=== PATIENT | female | born 1940 | race Caucasian/White ===

== ENCOUNTER → 2016-11-13 | Outpatient (CLI) | payer MEDICARE, BC ==
[2016-11-13 13:49] LABS: Blood Urea Nitrogen 6 mg/dL (7-17); Non-African American GFR(MDRD) >60 (>60 ml/min/1.73 sqM)
== END | disposition home or self-care (01) ==
LOC: LABWHC1 13:20
PROVIDERS: ATTEND Physical Medicine & Rehabilitation
DX: Z01.812 Encounter for preprocedural laboratory examination (principal); N28.9 Disorder of kidney and ureter, unspecified; M47.817 Spondylosis without myelopathy or radiculopathy, lumbosacral region; M51.36 Other intervertebral disc degeneration, lumbar region; M25.551 Pain in right hip; Z96.641 Presence of right artificial hip joint; Z85.3 Personal history of malignant neoplasm of breast
CPT/HCPCS: 36415; 82565; 84520

== ENCOUNTER → 2018-10-19 | Outpatient (CLI) | payer MEDICARE, BC ==
[2018-10-19 11:10] LABS: African American GFR (CKD) >90 (>60 ml/min/1.73 sqM); Blood Urea Nitrogen 10 mg/dL (7-17)
--- NOTE | 2018-10-19 15:30 | CT ---
EXAMINATION TYPE: CT ChestAbdPelvis w con DATE OF EXAM: 10/19/2018 COMPARISON: None HISTORY: 78-year-old female with Breast cancer, weight loss TECHNIQUE: Contiguous axial scanning of the chest, abdomen, and pelvis performed with IV Contrast, pa tient injected with 100 mL of Isovue 300. Delayed images through the kidneys were obtained. Coronal/s agittal reconstructions performed. CT DLP: 880.3 mGycm Automated exposure control for dose reduction was used. FINDINGS: CHEST: Heart borderline enlarged without pericardial effusion. Scattered coronary vessel calcifications are present. Mild aortic valvular calcifications. Ectatic ascending aorta at 3.8 cm. Moderate atherosclerotic arch calcifications with conventional arc h vessel branching anatomy. 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 Tortuous mid an d lower descending thoracic aorta. No thoracic lymphadenopathy by CT size criteria. Bilateral retropectoral implants are demonstrated. Mild to moderate centrilobular emphysema in the upper lungs. No consolidation or pleural effusion. There is a large hiatal hernia containing the entire stomach with organoaxial positioning. No surroun ding fluid, abnormal wall thickening, or pneumatosis seen. ABDOMEN: Above-mentioned large hiatal hernia. Couple calcifications within the mid aspect of the liver likely representing calcified granulomas. No other focal liver lesion seen. Portal venous system is patent. No biliary ductal dilatation. Large diverticulum arising from the second portion of the duodenum measuring up to 5.6 cm and contain ing some debris and contrast and projecting into the pancreatic head region. Thickening of the posterior wall of the gallbladder 9 mm. No abnormal gallbladder distention or surro unding inflammatory fat stranding. Adrenal glands, kidneys, spleen, and pancreas show no gross abnormal mobility. No dilated small bowel, free fluid, or free air. No mesenteric or retroperitoneal lymphadenopathy. Moderate atherosclerotic calcifications abdominal aorta and iliac arteries without aneurysm. Normal appendix. Oral contrast progressed to the rectum. Staple line from prior resection and re-anastomosis at the re ctosigmoid junction. There is sigmoid diverticulosis without pericolonic inflammatory change. PELVIS: Bladder is urine distended. Uterus anteverted. Both ovaries are visualized. No abnormal fluid collect ion in the pelvis. Artifact from the patient's right hip arthroplasty limits the exam. Stable to excl ude abnormal soft tissue thickening along the right posterior pelvis, refer to axial images 106 and 1 07 and coronal image 72. Otherwise, no evident pelvic lymphadenopathy. BONES: Right hip arthroplasty. Advanced degenerative disc disease lower thoracic spine and throughout the samara mbar spine. Hypertrophic facet arthropathy lumbar spine. IMPRESSION: 1. BILATERAL RETROPECTORAL BREAST IMPLANTS. 2. COPD WITH MILD TO MODERATE EMPHYSEMA. 3. LARGE HIATAL HERNIA CONTAINING ESSENTIALLY THE ENTIRE STOMACH WITH ORGANOAXIAL POSITIONING. NO INF LAMMATORY CHANGES TO SUGGEST VOLVULUS. 4. ORAL CONTRAST HAS PROGRESSED TO THE RECTUM. PRIOR DISTAL COLONIC RESECTION WITH RECTOSIGMOID ANAST OMOSIS. 5. EXTENSIVE ARTIFACT FROM PATIENT'S RIGHT HIP TOTAL ARTHROPLASTY. EITHER ABNORMAL SOFT TISSUE IN THE POSTERIOR RIGHT HEMIPELVIS VERSUS STREAK ARTIFACT. THE LATTER IS SOMEWHAT FAVORED WHEN CORRELATING W ITH THE CORONAL SERIES. CORRELATE FOR ANY CLINICAL SYMPTOMS IN THE LOWER RIGHT PELVIS TO DETERMINE TH E NEED FOR FURTHER EVALUATION SUCH WITH CT OF THE PELVIS WITH MARS (METAL ARTIFACT REDUCTION ) PRO TOCOL. 6. THICKENING OF THE POSTERIOR WALL OF THE GALLBLADDER UP TO 9 MM SUSPECTED TO BE ON THE BASIS OF LAY ERING GRAVEL/SLUDGE. THIS CAN BE CONFIRMED WITH GALLBLADDER ULTRASOUND. 7. SIGMOID DIVERTICULOSIS.
== END | disposition home or self-care (01) ==
LOC: RADCTMAIN 10:02
PROVIDERS: ATTEND Internal Medicine Hematology & Oncology
DX: Z03.89 Encounter for observation for other suspected diseases and conditions ruled out (principal); C50.919 Malignant neoplasm of unspecified site of unspecified female breast; J43.9 Emphysema, unspecified; K44.9 Diaphragmatic hernia without obstruction or gangrene; K57.30 Diverticulosis of large intestine without perforation or abscess without bleeding; R93.5 Abnormal findings on diagnostic imaging of other abdominal regions, including retroperitoneum; Z98.82 Breast implant status; Z98.890 Other specified postprocedural states
CPT/HCPCS: 82565; 84520; 71260; 74177; 36415; Q9967

== ENCOUNTER → 2018-10-25 | Outpatient (CLI) | payer MEDICARE, BC ==
--- NOTE | 2018-10-26 04:30 | NM ---
EXAMINATION TYPE: NM bone scan whole body DATE OF EXAM: 10/25/2018 COMPARISON: Correlation CT 10/19/2018 HISTORY: 78-year-old female history of breast cancer 12 years ago. Technique: Delayed whole-body scanning was performed following the injection of 24.9 mCi Tc 99m MDP. Images acquired 3.5 hours post injection. FINDINGS: Periodontal disease. Degenerative tracer activity at the shoulders, sternoclavicular joints, sternoma nubrial joint, and lateral compartment of the left knee. Extensive localized tracer activity within t he mid to lower thoracic spine corresponds to areas of degenerative disc disease. Additional degenera tive activity especially along the posterior elements of the cervical spine and lower lumbar spine. N o suspicious distribution of tracer activity to suggest osseous metastatic disease. IMPRESSION: Degenerative tracer activity as above, fairly extensive in the mid to lower thoracic spine, posterior elements of the cervical spine, and lower lumbar spine corresponding to findings on CT. No convincin g scintigraphic evidence for osseous metastatic disease.
== END | disposition home or self-care (01) ==
LOC: RADNMMAIN 10:03
PROVIDERS: ATTEND Internal Medicine Hematology & Oncology
DX: C50.919 Malignant neoplasm of unspecified site of unspecified female breast (principal); R63.4 Abnormal weight loss
CPT/HCPCS: 78306; A9503

== ENCOUNTER → 2020-12-24 | Outpatient (CLI) | payer MEDICARE, BC ==
--- NOTE | 2020-12-24 12:16 | MR ---
EXAMINATION TYPE: MR brain wo/w con DATE OF EXAM: 12/24/2020 COMPARISON: MRI brain 03/01/2020 HISTORY: Abnormal MRI follow up, CVA, neoplasm, and memory loss. History of breast cancer 15 years ag o. TECHNIQUE: Multiplanar, multisequence images of the brain and brainstem is performed without and with IV contras t, utilizing 7 mL intravenous Gadavist . FINDINGS: Diffusion weighted images demonstrate no evidence of a recent infarct or other diffusion ab normality. There is no extra-axial fluid collection or significant change in white matter signal abn ormality. The ventricular system and cisternal spaces are normal in size and appearance. The brain volume is similar, there is cortical atrophy. Midline structures demonstrate normal morphology. The craniocervical junction appears within normal limits. Post contrast images demonstrate no abnormal enhancement. The dural venous sinuses appear pa tent. The visualized sinuses are showing some inflammatory change in the ethmoid air cells, sphenoid sinus similar to prior MR and the globes are intact. IMPRESSION: Age-related atrophy, chronic small vessel ischemic changes. Sinus disease.
== END | disposition home or self-care (01) ==
LOC: RADMRIMAIN 09:13
PROVIDERS: ATTEND Psychiatry & Neurology Neurology
DX: I67.82 Cerebral ischemia (principal); G31.9 Degenerative disease of nervous system, unspecified
CPT/HCPCS: 70553; A9585

== ENCOUNTER 2023-08-20 08:38 | Emergency (ER) | payer MEDICARE, BC ==
--- NOTE | 2023-08-20 08:53 | ED ---
General Adult HPI - General Stated complaint: Fall Time Seen by Provider: 08/20/23 08:40 Source: patient, RN notes reviewed, old records reviewed - History of Present Illness Initial comments: This is an 82-year-old female who presents to the emergency department that is not alert or oriented and that is her baseline. Patient fell hit her head and she has an abrasion to the right side of her forehead. She did not lose consci ous as far as the staff knows. Patient is unable to give any history and no one is with her to give any further history. - Related Data Home Medications Medication Instructions Recorded Confirmed Acetaminophen [Tylenol 8 Hour] 650 mg PO Q4H PRN 08/20/23 08/20/23 Atorvastatin Calcium [Lipitor] 40 mg PO HS 08/20/23 08/20/23 Citalopram Hydrobromide [CeleXA] 10 mg PO DAILY 08/20/23 08/20/23 Ensure Enlive 237 ml PO TID@0800,1200,1700 08/20/23 08/20/23 Magnesium Hydroxide [Milk of 7,200 mg PO DAILY PRN 08/20/23 08/20/23 Magnesia Concentrate] Memantine [Namenda] 10 mg PO BID 08/20/23 08/20/23 Multivitamins, Thera [Multivitamin 1 tab PO DAILY 08/20/23 08/20/23 (formulary)] Na Phos,M-B/Na Phos,Di-Ba [Fleet 133 ml RECTAL DAILY PRN 08/20/23 08/20/23 Adult] QUEtiapine [SEROquel] 25 mg PO BID 08/20/23 08/20/23 Rivastigmine 13.3MG/24Hr Patch 1 patch TRANSDERM DAILY 08/20/23 08/20/23 [Exelon 13.3MG/24Hr Patch] Sodium Chloride Tab 1 gm PO TID@0800,1200,1700 08/20/23 08/20/23 bisacodyL [Dulcolax] 10 mg RECTAL DAILY PRN 08/20/23 08/20/23 hydrOXYzine HCL [Atarax] 25 mg PO HS 08/20/23 08/20/23 Allergies Allergy/AdvReac Type Severity Reaction Status Date / Time No Known Allergies Allergy Verified 08/20/23 10:25 Review of Systems ROS Statement: Those systems with pertinent positive or pertinent negative responses have been documented in the HPI. ROS Other: All systems not noted in ROS Statement are negative. General Exam - General Exam Comments Initial Comments: GENERAL: Patient is well-developed and well-nourished. Patient is nontoxic and well- hydrated and is in no acute distress. ENT: Neck is soft and supple. No significant lymphadenopathy is noted. Oropharynx is clear. Moist mucous membranes. Neck has full range of motion without el iciting any pain. EYES: The sclera were anicteric and conjunctiva were pink and moist. Extraocular movements were intact and pupils were equal round and reactive to light. Eyelids were unremarkable. PULMONARY: Unlabored respirations. Good breath sounds bilaterally. No audible rales rhonchi or wheezing was noted. CARDIOVASCULAR: There is a regular rate and rhythm without any murmurs gallops or rubs. ABDOMEN: Soft and nontender with normal bowel sounds. SKIN: Abrasion right side of the forehead NEUROLOGIC: Patient is alert and oriented x 0 and according to EMS this is her baseline. Cranial nerves II through XII are grossly intact. Motor and sensory are also intact. Normal speech, volume and content. Symmetrical smile. MUSCULOSKELETAL: Normal extremities with adequate strength and full range of motion. LYMPHATICS: No significant lymphadenopathy is noted PSYCHIATRIC: Unable to at this time Course Vital Signs 08/20/23 08/20/23 08:44 09:58 Temperature 99.2 F Pulse Rate 67 73 Respiratory 18 18 Rate Blood Pressure 124/71 107/65 O2 Sat by Pulse 92 L 93 L Oximetry Medical Decision Making - Medical Decision Making Was pt. sent in by a medical professional or institution (, PA, MILITARY EQUIPMENT SPECIALIST, urgent care, hospital, or residential...) When possible be specific @ -No Did you speak to anyone other than the patient for history (EMS, parent, family, police, friend...)? What history was obtained from this source @ -No Did you review nursing and triage notes (agree or disagree)? Why? @ -I reviewed and agree with nursing and triage notes Were old charts reviewed (outside hosp., previous admission, EMS record, old EKG, old radiological studies, urgent care reports/EKG's, residential records)? Report findings @ -No old charts were reviewed Differential Diagnosis? @ -Chest pain, altered mental status, abdominal pain women, abdominal pain men, vaginal bleeding, weakness, fever, dyspnea, syncope, headache, dizziness, GI bleed, back pain, seizure, CVA, palpatations, mental health, musculoskeletal EKG interpreted by me (3pts min.). @ -As above X-rays interpreted by me (1pt min.). @ -None done CT interpreted by me (1pt min.). @ -CT of the brain shows subdural arachnoid bleed as well as a subdural bleed. CT of the neck shows no acute normality U/S interpreted by me (1pt. min.). @ -None done What testing was considered but not performed or refused? (CT, X-rays, U/S, labs)? Why? @ -None What meds were considered but not given or refused? Why? @ -None Did you discuss the management of the patient with other professionals (professionals i.e. , PA, MILITARY EQUIPMENT SPECIALIST, lab, RT, psych nurse, medical social consultant, group worker, teacher, commanding officer motorized squad, correctional casework specialist)? Give summary @ -No Was smoking cessation discussed for >3mins.? @ -No Was critical care preformed (if so, how long)? @ -No Were there social determinants of health that impacted care today? How? (Ho melessness, low income, unemployed, alcoholism, drug addiction, transportation, low edu. Level, literacy, decrease access to med. care, custodial, rehab)? @ -No Was there de-escalation of care discussed even if they declined (Discuss DNR or withdrawal of care, Hospice)? DNR status @ -No What co-morbidities impacted this encounter? (DM, HTN, Smoking, COPD, CAD, Cancer, CVA, ARF, Chemo, Hep., AIDS, mental health diagnosis, sleep apnea, morbid obesity)? @ -None Was patient admitted / discharged? Hospital course, mention meds given and route, prescriptions, significant lab abnormalities, going to OR and other pertinent info. @ -I spoke with the he did not want any surgery or intervention for the bleed. He also stated that he wanted the patient to be a DNR Undiagnosed new problem with uncertain prognosis? @ -No Drug Therapy requiring intensive monitoring for toxicity (Heparin, Nitro, Insulin, Cardizem)? @ -No Were any procedures done? @ -No Diagnosis/symptom? @ -Subarachnoid hemorrhage Acute, or Chronic, or Acute on Chronic? @ -Acute Uncomplicated (without systemic symptoms) or Complicated (systemic symptoms)? @ -Complicated Side effects of treatment? @ -No Exacerbation, Progression, or Severe Exacerbation? @ -No Poses a threat to life or bodily function? How? (Chest pain, [place], PA, pneumonia, PE, COPD, DKA, ARF, appy, cholecystitis, CVA, Diverticulitis, Homicidal, Suicidal, threat to staff... and all critical care pts) @ -Yes this could lead to further bleed and diagnosis/symptom? @ -Subdural hemorrhage Acute, or Chronic, or Acute on Chronic? @ -Acute on chronic Uncomplicated (without systemic symptoms) or Complicated (systemic symptoms)? @ -Complicated Side effects of treatment? @ -None Exacerbation, Progression, or Severe Exacerbation] @ -No Poses a threat to life or bodily function? @ -Yes this could lead to further bleeding and Disposition Clinical Impression: Fall, Subarachnoid bleed, Subdural bleeding Disposition: HOME SELF-CARE Condition: Good Instructions (If sedation given, give patient instructions): Fall Prevention for Older Adults (ED), Subarachnoid Hemorrhage (DC) Is patient prescribed a controlled substance at d/c from ED?: No Referrals: Yifan Bailey MD [Primary Care Provider] - 1-2 days Time of Disposition: 11:07
[2023-08-20 08:59] VITALS: RESP 18
--- NOTE | 2023-08-20 10:26 | CT ---
EXAMINATION TYPE: CT brain cspine wo con CT DLP: 1367.9 mGycm, Automated exposure control for dose reduction was used. DATE OF EXAM: 08/20/2023 9:48 AM COMPARISON: None. CLINICAL INDICATION:Female, 82 years old with history of Trauma; Fall, hx TBI TECHNIQUE: Brain: Multiple axial CT images of the brain were obtained without IV contrast. Cspine: Axial CT images from the skull base to the inferior aspect of T2 we obtained without intraven ous contrast. Coronal and sagittal reformatted images were also reviewed. . FINDINGS: Brain: Extra-axial spaces: Fluid collection thought to be layering across the cerebrum bilaterally with high density blood collection in the left posterior aspect of the suspected chronic subdural hemorrhage w hich is CSF attenuating as well as some high density blood interdigitating the left parietal lobe ser ies 2035 image 38. Ventricular system: Within normal limits Cerebral parenchyma: No acute intraparenchymal hemorrhage or mass effect. The buenrostro-white junction is well differentiated. Cerebellum: Unremarkable. Mass effect: No evidence of midline shift. Intracranial vasculature: unremarkable Soft tissues: Normal. Calvarium/osseous structures: No depressed skull fracture. Paranasal sinuses and mastoid air cells: Clear. Visualized orbits: Orbital contents are intact. Cervical spine: Fracture: None. Osseous structures: Multilevel degenerative disc disease changes with endplate spurring and disc oste ophyte complex's. Vertebral alignment: Grade 1 anterolisthesis of C3 on C4. Spinal canal/Neural Foramina: No evidence of significant spinal canal narrowing. No evidence for sign ificant neural foraminal stenosis. Neck soft tissues: Prevertebral soft tissues are within normal limits. Other: The airway is patent. Centrilobular emphysema changes in the lung apices. Atherosclerosis of t he carotid bifurcations. IMPRESSION: 1. Extra-axial blood products thought to be seen bilaterally. CSF attenuating along the greater curv atures of the cerebrum. 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 Additional high density in the sulcus of the left parietal lobe series 2035 image 38 suggesting subarachnoid hemorrhage. 2. No evidence of cervical spine fracture. 3. Moderate multilevel degenerative disc disease. 4. Mild emphysema. Findings communicated to Dr. Denton Huang MD on 08/20/2023 10:[address] Mina Pandey.
[2023-08-20 11:58] VITALS: BP 110/66; PULSE 78; TEMP 98.1
== END 2023-08-20 12:04 | disposition home or self-care (01) ==
LOC: EC 08:38
DX: I62.00 Nontraumatic subdural hemorrhage, unspecified (principal); W18.30XA Fall on same level, unspecified, initial encounter
CPT/HCPCS: 70450; 72125; 99284